=== PATIENT | male | born 1975 | race Caucasian/White ===

== ENCOUNTER 2016-11-10 20:37 | Emergency (ER) | payer SELFPAY ==
[~2016-11-10] VITALS: Ht 172.7 cm; Wt 81.4 kg
[~2016-11-10 20:37] MED LIST: FLEXERIL 1010 MG/TAB PO; NAPROSYN500 MG PO; NKDA; NORCO 325 MG-51 TAB PO
[2016-11-10 20:38] VITALS: TEMP 97.4
[2016-11-10] MEDS ORDERED: NORCO 325 MG-51 TAB PO (22:51)
[2016-11-10 22:55] VITALS: BP 152/106; PULSE 87
== END 2016-11-10 22:58 | disposition home or self-care (01) ==
LOC: COL.ER 20:37
DX: S93.402A Sprain of unspecified ligament of left ankle, initial encounter (principal); W10.9XXA Fall (on) (from) unspecified stairs and steps, initial encounter